=== PATIENT | female | born 1990 | race Hispanic/Latino ===

== ENCOUNTER 2017-03-05 15:49 | Emergency (ER) | payer OTHER ==
[2017-03-05] MEDS ORDERED: KETOROLAC TROMETHAMINE 30 MG/ML VIAL ONE (16:28)
[2017-03-05] MEDS ORDERED: ONDANSETRON HCL 4 MG/2 ML VIAL ONE (16:28)
--- NOTE | 2017-03-05 16:56 | ER NURSING DOCUMENTATION ---
Nurse's Notes [facility] Name:Cindi Martinez Age:26 yrs Sex:Female :1990 Arrival Date:03/05/2017 Time:15:49 Bed3 Private MD: Diagnosis:Migraine Headache Presentation: 03/05 15:52 Acuity: RENAY 3 tg 16:09 Presenting complaint: Patient states: Migraine. Tried home med without relief. 4 Transition of care: Home. 16:09 Method Of Arrival: Walk In [facility] Triage Assessment: 16:15 Headache History: Other HX- migraines. General: Appears distressed, Behavior is 4 cooperative. Pain: Pain currently is 10 out of 10 on a pain scale. EENT: No deficits noted. Neuro: Level of Consciousness is awake, alert, Oriented to person, place, time, [employer] are equal bilaterally Moves all extremities. Gait is steady, Speech is normal. Respiratory: Airway is patent Respiratory effort is even, unlabored, Breath sounds are clear. GI: Abdomen is non- distended. : No deficits noted. Derm: No deficits noted. Musculoskeletal: No deficits noted. 16:15 Pain: Also complains of nausea. 4 16:54 Pain: Pain began suddenly, 2 hours ago. [facility] Historical: - Allergies: No known drug Allergies; - Home Meds: 1. Relpax Unknown 2. Dexamethasone Oral Unknown once daily 3. Cheratussin DAC oral Unknown 4. Albuterol Nebulizer Unknown - PMHx: Bronchitis Acute (January 18, 2016); - Tetanus: < 10 years. - Ebola Screening: : No symptoms or risks identified at this time. . - Immunization history: Flu Vaccine < 1 year. - Social history: Smoking status: Patient states was never smoker of tobacco. Screenin:19 Infectious Disease Risk None. Abuse screen: Denies threats or abuse. Nutritional [facility] screening: No deficits noted. Assessment: 16:19 See Triage Assessment done by same RN. [facility] Vital Signs: 16:03 BP 112 / 87; Pulse 77; Resp 16; Temp 97.9; Pulse Ox 96% ; Weight 57.15 kg; Height 5 ft. jt (152.40 cm); Pain 9/10; 16:53 BP 109 / 80; Pulse 85; Resp 17; Temp 98.2; Pulse Ox 97% on R/A; Pain 1/10; mk4 16:03 Body Mass Index 24.61 (57.15 kg, 152.40 cm) jt ED Course: 15:51 Patient arrived in ED. jt 15:52 Triage completed. tg 15:54 Cliff Ortiz MD is Attending Physician. tl1 16:04 Inserted peripheral IV: saline lock: 20 gauge antecubital area and blood collected. jt 16:09 Carole Harrison is Primary Nurse. mk4 16:18 Arm band placed on Bed in low position Call Light in Reach Gowned Side rails up x2. mk4 Family accompanied patient. 16:19 Valuables sent with patient. mk4 16:34 Sarah Toussaint MD is Referral Physician. tl1 Administered Medications: Completed: NS 0.9% 1000 ml IV at bolus once 16:00 Drug: NS 0.9% 1000 ml; Route: IV; Rate: bolus; Site: left forearm; Delivery: [place] tg Tubing; 16:43 Follow up: IV Status: Completed infusion; Infusion discontinued mk4 16:20 Drug: Toradol 30 mg; Route: IVP; Site: left forearm; tg 16:41 Follow up: Response: No adverse reaction; Pain is decreased mk4 16:20 Drug: Zofran 4 mg; Route: IVP; Infused Over: 2 mins; Site: left forearm; tg 16:43 Follow up: Response: No adverse reaction; Nausea is decreased mk4 Outcome: 16:35 Discharge ordered by . tl1 16:53 Discharged to home ambulatory. mk4 16:53 Condition: improved 16:53 Discharge Assessment: Patient awake, alert and oriented x 3. No cognitive and/or functional deficits noted. Patient verbalized understanding of disposition instructions. 16:53 Discharge instructions given to patient, Instructed on discharge instructions, follow up and referral plans. medication usage, Demonstrated understanding of instructions, medications, Prescriptions given X 2. 16:55 Patient left the ED. 4 Signatures: Jonathan Garay RN RN Carole Harrison [facility] Cliff Ortiz MD MD tl1 Sophie Cuellar
--- NOTE | 2017-03-05 16:56 | ER PHYSICIAN DOCUMENTATION ---
Physician Documentation [facility] Name:Cindi Martinez Age:26 yrs Sex:Female :1990 Arrival Date:03/05/2017 Time:15:49 Bed3 Private MD: Cliff Armenta Disposition: 03/06 12:40 Chart complete. tl1 Disposition: 03/05/17 16:35 Discharged to Home/Self Care. Impression: Migraine Headache. - Condition is Good. - Discharge Instructions: HEADACHE, Migraine (Classical). - Prescriptions for Imitrex 20 mg/Actuation Nasal Aerosol, [place] - inhale 1 spray by INTRANASAL route once daily - x 1 dose; if headache returns, the dose may be repeated once after 2 hours, not to exceed a total daily dose of 2 sprays; 1 Inhaler. Zofran 4 mg Oral Tablet - take 1-2 tablet by ORAL route every 4-6 hours As needed; 10 tablet. - Medical Reconciliation form form. - Follow up: Sarah Toussaint MD; When: 4- 6 days; Reason: Recheck today's complaints, Continuance of care. - Problem is new. - Symptoms have improved. HPI: 03/05 15:54 This 26 yrs old Female presents to ER with complaints of Headache. tl1 15:54 The patient has experienced similar episodes in the past. She has a long h/o migraine tl1 headaches. Relpax usually works, but today it has not. Toradol and imitrex usually work as rescue medications and she would like to try this again. This headache is typical in every way. . Historical: - Allergies: No known drug Allergies; - Home Meds: 1. Relpax Unknown 2. Dexamethasone Oral Unknown once daily 3. Cheratussin DAC oral Unknown 4. Albuterol Nebulizer Unknown - PMHx: Bronchitis Acute (January 18, 2016); - Tetanus: < 10 years. - Ebola Screening: : No symptoms or risks identified at this time. . - Immunization history: Flu Vaccine < 1 year. - Social history: Smoking status: Patient states was never smoker of tobacco. ROS: 15:54 Constitutional: Positive for malaise. tl1 15:54 Eyes: Positive for photophobia. 15:54 Abdomen/GI: Positive for nausea, vomiting, Negative for abdominal pain, diarrhea. 15:54 Neuro: Negative for dizziness, gait disturbance, hearing loss, numbness, weakness. Exam: 15:54 Constitutional: The patient appears alert, awake, in obvious distress, mildly tl1 distressed, restless. 15:54 Head/face: Exam is negative for acute changes. 15:54 Head/face: Sinus tenderness, is not appreciated. 15:54 Eyes: Periorbital structures: appear normal, Pupils: equal, round, and reactive to light and accomodation, Extraocular movements: intact throughout, Conjunctiva: normal, Sclera: no appreciated abnormality. 15:54 Neck: ROM/movement: is normal, is supple. 15:54 Cardiovascular: Rate: normal, Rhythm: regular. 15:54 Cardiovascular: Heart sounds: normal. 15:54 Respiratory: Respirations: normal. 15:54 Neuro: Orientation: is normal, Mentation: is normal, Memory: appropriate for stated age, Cranial nerves: grossly normal, Motor: moves all fours, Gait: is steady, at a normal pace, without difficulty, appropriate for age. Vital Signs: 16:03 BP 112 / 87; Pulse 77; Resp 16; Temp 97.9; Pulse Ox 96% ; Weight 57.15 kg; Height 5 ft. jt (152.40 cm); Pain 9/10; 16:53 BP 109 / 80; Pulse 85; Resp 17; Temp 98.2; Pulse Ox 97% on R/A; Pain 1/10; mk4 16:03 Body Mass Index 24.61 (57.15 kg, 152.40 cm) jt MDM: 15:54 Patient medically screened. tl1 16:00 Data reviewed: vital signs, nurses notes, and as a result, I will discharge patient. tl1 Counseling: I had a detailed discussion with the patient and/or guardian regarding: the historical points, exam findings, and any diagnostic results supporting the discharge/admit diagnosis, lab results. Response to treatment: the patient's symptoms have markedly improved after treatment, and as a result, I will discharge patient. Dispensed Medications: Completed: NS 0.9% 1000 ml IV at bolus once 16:00 Drug: NS 0.9% 1000 ml; Route: IV; Rate: bolus; Site: left forearm; Delivery: [place] tg Tubing; 16:43 Follow up: IV Status: Completed infusion; Infusion discontinued mk4 16:20 Drug: Toradol 30 mg; Route: IVP; Site: left forearm; tg 16:41 Follow up: Response: No adverse reaction; Pain is decreased mk4 16:20 Drug: Zofran 4 mg; Route: IVP; Infused Over: 2 mins; Site: left forearm; tg 16:43 Follow up: Response: No adverse reaction; Nausea is decreased mk4 Signatures: Jonathan Garay RN RN tg Carole Harrison mk4 Cliff Ortiz MD MD tl1
== END 2017-03-05 16:56 | disposition home or self-care (01) ==
LOC: ER 15:49
DX: G43.009 Migraine without aura, not intractable, without status migrainosus (principal); R11.2 Nausea with vomiting, unspecified; Z79.899 Other long term (current) drug therapy
CPT/HCPCS: 96361; 96374; 96375; 99284; J1885; J2405